=== PATIENT | male | born 1990 | race Caucasian/White ===

== ENCOUNTER 2025-01-08 05:39 | Observation (INO) | payer OTHER, SELFPAY ==
[2025-01-08] VITALS (13 sets, daily range): BP systolic 118–144; BP diastolic 70–93; PULSE 71–103; RESP 12–28; TEMP 36–37; O2SAT 90–96; BMI 35.9; BMI 43.6
--- NOTE | ~2025-01-08 | XR_ITS ---
EXAMINATION: XR KNEE 4 OR MORE VIEWS RIGHT HISTORY: swelling pain COMPARISON: There are no prior studies available for comparison. FINDINGS: Four views of the right knee are submitted. Osseous mineralization is normal. There is no fracture or dislocation. The joint spaces are preserved. There is a large suprapatellar joint effusion. There is a tiny rounded osseous density in the lateral compartment which may present a loose body.. XR/XR knee RT 4V IMPRESSION: Large joint effusion. Possible tiny loose body in the lateral compartment. Otherwise unremarkable examination of the right knee. Electronically signed by: Andrew Smith MD 01/08/2025 07:52 AM EDT
--- NOTE | ~2025-01-08 | XR_ITS ---
EXAMINATION: XR CHEST 2 VIEWS HISTORY: cough asthma sob COMPARISON: There are no prior studies available for comparison. FINDINGS: PA and lateral views of the chest are submitted. The lungs are expanded and clear. There is no pleural effusion, pneumothorax, or pulmonary vascular congestion. The heart is normal in size. The bones are intact. XR/XR chest 2V IMPRESSION: Clear lungs. Electronically signed by: Andrew Smith MD 01/08/2025 07:53 AM EDT
--- NOTE | ~2025-01-08 | XR_ITS ---
EXAMINATION: XR CHEST 1 VIEW HISTORY: sob COMPARISON: Comparison is made with the prior examination dated 01/08/2025. FINDINGS: A single AP portable view of the chest performed at 8:10 AM is submitted. There are low lung volumes. There is linear subsegmental atelectasis at the lung bases. There is no pleural effusion, pneumothorax, or pulmonary vascular congestion. The heart is normal in size. The bones are intact. XR/XR chest 1V IMPRESSION: Low lung volumes. Bibasilar subsegmental atelectasis. Electronically signed by: Andrew Smith MD 01/08/2025 08:30 AM EDT
--- OUTSIDE RECORDS SUMMARY | 2025-01-08 07:29 | XMS_ITS | Clinical Summary ---
Author Organization Formerly [facility] Address [address] [place] [address] Care Team Providers Care Vice Chairman Name Role Phone Unavailable Primary Care Provider Unavailabl e Allergies No known active allergies Medications No known medications Active Problems No known active problems Social History Tobacco Use Types Packs/Day Years Used Date Smoking Tobacco: Some Days Cigarettes 0.5 Smokeless Tobacco: Never Tobacco Cessation:Ready to Q uit: No; Counseling Given: Yes Alcohol Use Standard Drinks/Week Comments Yes 8 (1 standard drink = 0.6 oz pur e alcohol) Social Sex and Gender Information Value Date Recorded Sex Assigned at Male 04/29/2020 12:08 AM EDT Gender Identity Male 04/29/2020 12:13 AM EDT Sexual Orientation Not on file Last Filed Vital Signs Vital Sign Reading Time Taken Comments Blood Pressure 133/81 04/29/2020 1:35 AM EDT Pulse 88 04/29/2020 1:35 AM EDT Temperature 36.9 C (98.5 F) 04/29/2020 1:35 AM EDT Respiratory Rate 18 04/29/2020 1:35 AM EDT Oxygen Saturation 98% 04/29/2020 1:35 AM EDT Inhaled Oxygen Concentration - - Weight 180.5 kg (398 lb) 04/29/2020 12:16 AM EDT Height 188 cm (6' 2 ) 04/29/2020 12:16 AM EDT Body Mass Index 51.1 04/29/2020 12:16 AM EDT Plan of Treatment Health Maintenance Due Date Last Done Comments Hepatitis B Vaccines (1 of 3 - 3-dose series) 1990 Hepatitis C Screening 1990 COVID-19 Vaccine (#1) 1990 Pneumococcal Vaccine (1 of 2 - PCV) 1996 Depression Screening 2002 BMI Counseling 2008 Preventative Health Evaluation 2008 DTap / Tdap / Td (1 - Tdap) 2009 Tobacco Cessation Counseling 04/29/2021 04/29/2020 Influenza Vaccine (Season Ended) 2025 RSV Ped < 20 months Aged Out No longe r eligible based on patient's age to complete this topic
--- OUTSIDE RECORDS SUMMARY | 2025-01-08 07:29 | XMS_ITS | Clinical Summary ---
Author Organization [facility] Address [id number] [place] [id number] Care Team Providers Care Mac Developer Name Role Phone Unavailable Primary Care Provider Unavailabl e Medical History Medical History Date Comments Asthma DX:Asthma Social History Tobacco Use Types Packs/Day Years Used Date Smoking Tobacco: Some Days Cigarettes Smokeless Tobacco: Never Alcohol Use Standard Drinks/Week Comments Yes 8 (1 standard drink = 0.6 oz pur e alcohol) Sex and Gender Information Value Date Recorded Sex Assigned at Not on file Legal Sex Male 7:50 PM EST Gender Identity Not on file Sexual Orientation Not on file Obstetrics History Plan of Treatment Health Maintenance Due Date Last Done Comments DTaP,Tdap,and Td Vaccines (1 - Tdap) 2009 Hepatitis B Vaccines (1 of 3 - 19+ 3-dose series) 2009 COVID-19 Vaccine (2023-2 5 season) 2024 Influenza Vaccine (Season Ended) 2025 HIB Vaccines Aged Out No longer eligi ble based on patient's age to complete this topic HPV Vaccines Aged Out No longer eligi ble based on patient's age to complete this topic Hepatitis A Vaccines Aged Out No long er eligible based on patient's age to complete this topic IPV Vaccines Aged Out No longer eligi ble based on patient's age to complete this topic MMR Vaccines Aged Out No longer eligi ble based on patient's age to complete this topic Meningococcal ACWY Vaccine Aged Out N o longer eligible based on patient's age to complete this topic Meningococcal B Vaccine Aged Out No l onger eligible based on patient's age to complete this topic Pneumococcal Vaccine: Pediat rics (0 to 5 Years) and At-Risk Patients (6 to 64 Years) Aged Out No longer eligible b ased on patient's age to complete this topic RSV Immunization Patients Un kimberlee 20 months Aged Out No longer eligible b ased on patient's age to complete this topic Varicella Vaccines Aged Out No longer eligible based on patient's age to complete this topic
[2025-01-08 07:42] LABS: Resp Syncy Virus RNA Qual PCR NEGATIVE (Negative); SARS COV2 PCR INHOUSE NEGATIVE (Negative)
[2025-01-08] MEDS: Albuterol Sulfate 5 MG, Albuterol/Iprat 2.5/0.5MG 3 ML 3 ML INHALE (07:58)
--- NOTE | 2025-01-08 08:14 | ED.GENADULT ---
HPI - General Adult General Chief complaint: General Medical Stated complaint: fluid in knee Time Seen by Provider: 01/08/25 07:10 History of Present Illness HPI narrative: Patient is a 34-year-old male presents today with having coughing congestion upper respiratory symptoms. Generalized malaise. Has a history of having fluid in his right knee. Reports 5 days of swelling. Positive coughing generalized malaise. History of asthma history of diabetes patient coughing productive of some sputum. Still smokes. Hospitalized for asthma 5 months ago. Never been intubated. No history of congestive heart failure Related Data Allergies Allergy/AdvReac Type Severity Reaction Status Date / Time No Known Allergies Allergy Verified 01/08/25 05:47 Review of Systems Review of Systems: Positive cough upper respiratory symptoms Yes all other systems are reviewed and are negative PMFSH Past Medical History Attestation statement: The following information was validated with the patient. Medical History (Updated 01/08/25 @ 13:55 by Robel Church MD) Obesity Diabetes mellitus Surgical History (Updated 01/08/25 @ 13:56 by Robel Church MD) No pertinent past surgical history Social History Social History (Updated 01/08/25 @ 13:56 by Robel Church MD) Alcohol intake: former Patient Tobacco Use Status: Never used Tobacco Smoked in Last 30 Days: No e-Cigarette/Vaping Use: Never Used Use of substances other than those prescribed or required for medical reasons: No Substance Use Type: Marijuana Advance Directives: No Advance Directives Information Provided: Yes Do you have a plan to hurt others: No Plan Physical Exam ED Vital Signs: Vital Signs - 24 hr 01/08/25 05:44 01/08/25 07:49 01/08/25 07:58 Temperature 98.6 F 96.9 F Pulse Rate 90 92 97 Respiratory Rate 20 26 H 28 H Blood Pressure 144/93 H 136/81 Pulse Oximetry 96 91 L Oxygen Delivery Method Room Air Room Air Oxygen Flow Rate 01/08/25 09:24 01/08/25 11:06 01/08/25 11:09 Temperature 97.8 F Pulse Rate 103 H 91 Respiratory Rate 22 H 12 Blood Pressure 132/79 118/74 Pulse Oximetry 93 Oxygen Delivery Method Nasal Cannula Oxygen Flow Rate 2 01/08/25 11:16 01/08/25 11:20 01/08/25 13:06 Temperature 97.9 F Pulse Rate 71 Respiratory Rate 14 17 Blood Pressure 120/70 Pulse Oximetry 90 L 93 96 Oxygen Delivery Method Nasal Cannula Nasal Cannula Room Air Oxygen Flow Rate 2 3 BMI result Body Mass Index 35.9 Appearance: Alert. Oriented X3. No acute distress. Eyes: Pupils equal, round and reactive to light. ENT: Pharynx normal. Neck: Normal inspection. Neck supple. No lymph nodes noted. No crepitus CVS: Normal heart rate and rhythm. Pulses normal. Normal S1 and S2 Respiratory: Diminished breath sounds positive wheezing bilaterally Abdomen: Soft and nontender. No rigidity. No distention. good BS x4 Skin: Skin warm and dry. Normal skin color. Normal skin turgor. Extremities: No lower extremity edema. Neurovascular intact to all extremities. Positive swelling to the right knee pain on flexion. Large amount of joint effusion noted. Distal pulses intact sensation intact Neuro: Oriented X 3. No motor deficit. No sensory deficit. Moving all extermities. No slurred speech Medications Administered Generic Name Dose Route Start Last Admin Trade Name Freq PRN Reason Stop Dose Admin Enoxaparin Sodium 40 mg 01/08/25 13:30 01/08/25 13:48 Enoxaparin Sodium 40 Mg/0.4 Ml Syringe SUBCUT 40 mg Q24H IRISH Administration Methylprednisolone Sodium Succinate 40 mg 01/08/25 13:30 01/08/25 13:48 Methylprednisolone Sod Succ 40 Mg Vial IVPUSH 40 mg Q8H IRISH Administration Discontinued Medications Generic Name Dose Route Start Last Admin Trade Name Freq PRN Reason Stop Dose Admin Albuterol Sulfate 5 mg/ 0 mg 01/08/25 07:55 01/08/25 07:58 Albuterol/Ipratropium 3 ml INHALE 01/08/25 07:56 1 each ONCE ONE Administration Albuterol Sulfate 2.5 mg/ 0 mg 01/08/25 09:21 01/08/25 09:24 Albuterol/Ipratropium 3 ml INHALE 01/08/25 09:22 1 dose ONCE ONE Administration Sodium Chloride 3,810.18 mls @ 3,810.18 mls/hr 01/08/25 08:06 01/08/25 11:06 Ns 30 ml/kg infuse over 1 hr (3810.18 ml) 01/08/25 09:05 Infused IV Infusion .Q1H STA Magnesium Sulfate 2 gm in 50 mls @ 25 mls/hr 01/08/25 08:06 01/08/25 09:05 Magnesium Sulfate/H2o IV 01/08/25 10:05 Infused ONCE ONE Infusion Methylprednisolone Sodium Succinate 125 mg 01/08/25 08:05 01/08/25 08:41 Methylprednisolone Sod Succ 125 Mg Vial IVPUSH 01/08/25 08:06 125 mg ONCE ONE Administration Procedures Joint Aspiration/Injection Joint Asp./Inject. 1: Time Out Performed: Yes Side of body: right Joint Aspirated: knee Ultrasound Guidance: No Skin Prep: Chlorhexidine Local Anesthetic: lidocaine 1% Needle Size Used: 20G Fluid Obtained: clear Total fluid obtained (mL): 140 Patient Tolerated Procedure: well Complications: none Medical Decision Making Medical Decision Making [facility] Narrative: Patient given multiple neb treatments with only moderate relief. My interpretation patient's chest x-ray is grossly negative. My interpretation patient's knee x-ray showed no fracture but large effusion. Patient's troponin was negative BNP is normal no evidence of heart failure no evidence for ACS lactate is 1.2 no evidence for severe sepsis I tapped patient's knee shows large amount of straw-colored synovial fluid. Symptomatically feels improved. Synovial fluid showed no gross signs of infection. Hospitalist team contacted will admit for further evaluation Differential Diagnosis Differential Diagnoses: The differential diagnosis associated with the presentation includes Asthma, fluid in the right knee, pneumonia Admission/Observation Consideration of admission/observation: Escalation of care including admission/observation considered Consult Healthcare Provider Management of the patient was discussed with: Hospitalist Lab Data [facility] Lab Attestation statement: I reviewed the patient's lab results. 01/08/25 08:26 01/08/25 08:26 Labs: Lab Results 01/08/25 01/08/25 01/08/25 Range/Units 06:48 08:26 08:58 WBC 10.1 (4.8-10.8) X10*3/uL RBC 5.31 (4.60-5.80) X10*6/uL Hgb 14.8 (14.0-18.0) g/dl Hct 44.3 (42.0-52.0) % MCV 83.4 (80.0-98.0) fL MCH 27.9 (27.0-33.0) pg MCHC 33.4 (31.0-36.0) g/dl RDW 14.6 (11.0-16.0) % Plt Count 394 (160-400) X10*3/uL MPV 9.5 (9.4-12.4) fL Immature Gran % (Auto) 0.2 (0.0-0.4) % Neut % (Auto) 52.5 (45-73) % Lymph % (Auto) 27.5 (20-40) % [place] % (Auto) 7.7 (2-11) % Eos % (Auto) 10.9 H (0-4) % Baso % (Auto) 1.2 (0-2) % Lymph # (Auto) 2.8 (1.2-4.9) X10*3/uL [place] # (Auto) 0.8 (0.1-1.2) X10*3/uL Eos # (Auto) 1.1 H (0.0-0.4) X10*3/uL Baso # (Auto) 0.1 (0.0-0.2) X10*3/uL Abs Immat Gran (auto) 0.02 (0.00-0.03) X10*3/uL Absolute Neuts (auto) 5.3 (2.0-8.3) x10*3/uL Absolute Nucleated RBC 0.000 (0.0-0.012) X10*3/uL Nucleated RBC % (auto) 0.0 (0.0-0.2) /100WBC Sodium 141 (135-145) mmol/L Potassium 3.8 (3.3-5.1) mmol/L Chloride 107 (96-108) mmol/L Carbon Dioxide 24 (22-29) mmol/L Anion Gap 14 (12-20) BUN 14 (9-16) mg/dL Creatinine 0.93 (0.5-1.4) mg/dL Estim Creat Clear Calc 158.4 Estimated GFR > 60 Random Glucose 99 (60-115) mg/dL Estimat Average Glucose 111 mg/dL Hemoglobin A1c % 5.5 (<6.0) % Lactic Acid 1.2 (0.5-2.0) mmol/L Calcium 9.4 (8.4-10.2) mg/dL Troponin I High Sens 3.1 (<3.5-35.0) ng/L B-Natriuretic Peptide 12 (<100) pg/mL Synovial Source right knee Synovial WBC 1.512 X10*3/uL Synovial RBC < 0.002 X10*6/uL Synovial Neutrophils 51 % Synovial Lymphocytes 26 % Synovial Monocytes 22 % Synovial Other Cells 1 Influenza Type A (PCR) NEGATIVE (Negative) Influenza Type B (PCR) NEGATIVE (Negative) RSV RNA Qual (PCR) NEGATIVE (Negative) SARS-CoV-2 RNA (RT-PCR) NEGATIVE (Negative) Independent Interpretation I performed an independent interpretation of an: Plain X-Ray (Chest x-ray negative. X-ray of the knee showed large effusion.) Radiology Impression Discussion of test interpretation with radiology: I have reviewed the radiologist's reading. Chronic Conditions History of asthma history of effusion to the right knee Social Determinants Patient?s care significantly limited by Social Determinants of Health including: Problems related to primary support group Critical Care Time Critical Care Time Critical Care Time: Yes Total Critical Care Time: 35 Attestation: I have personally provided 35 minutes of critical care time exclusive of time spent on separately billable procedures. ?Time includes review of lab data, radiology results, discussion with consultants, and monitoring for potential decompensation. ?Interventions were performed as documented above Discharge Plan Discharge Clinical Impression: Asthma, Effusion of knee Patient Disposition: Admitted As Inpatient Print Language: Maltese
[2025-01-08 08:33] LABS: MANUAL DIFF FLAG NO
[2025-01-08 08:34] LABS: Hematocrit 44.3 % (42.0-52.0); Hemoglobin 14.8 g/dl (14.0-18.0); Imm Gran Abs Auto 0.02 X10*3/uL (0.00-0.03); Imm Gran Pct Auto 0.2 % (0.0-0.4); Lymphocytes Absolute Auto 2.8 X10*3/uL (1.2-4.9); Mean Corpuscular HGB Conc 33.4 g/dl (31.0-36.0); Mean Corpuscular Hemoglobin 27.9 pg (27.0-33.0); Mean Corpuscular Volume 83.4 fL (80.0-98.0); NRBC Abs Auto 0.000 X10*3/uL (0.0-0.012); NRBC Pct Auto 0.0 /100WBC (0.0-0.2); Platelet Count 394 X10*3/uL (160-400); Red Blood Count 5.31 X10*6/uL (4.60-5.80); White Blood Count 10.1 X10*3/uL (4.8-10.8)
[2025-01-08] MEDS: Magnesium Sulfate/H2O 2 GM/50 ML PIGGYBACK IV (08:41)
[2025-01-08 08:51] LABS: Anion Gap 14 (12-20); Blood Urea Nitrogen 14 mg/dL (9-16); Calcium 9.4 mg/dL (8.4-10.2); Carbon Dioxide 24 mmol/L (22-29); Chloride 107 mmol/L (96-108); Creatinine Clr Calc Pharmacy 158.4; Estimated Glomerular Filt Rate > 60; Potassium 3.8 mmol/L (3.3-5.1); Sodium 141 mmol/L (135-145)
[2025-01-08 08:55] LABS: B Type Natriuretic Peptide 12 pg/mL (<100)
[2025-01-08 08:57] LABS: Troponin-I High Sensitivity 3.1 ng/L (<3.5-35.0)
[2025-01-08] MEDS: 0.9 % Sodium Chloride 3,810.18 ML 3810.18 ML IV (08:59)
[2025-01-08 09:05] LABS: Source Synovial Fluid right knee
[2025-01-08 09:17] LABS: MN% 57.4 %; PMN% 42.6 %
[2025-01-08 09:18] LABS: RBC Synovial Fluid < 0.002 X10*6/uL
[2025-01-08] MEDS: Albuterol Sulfate 2.5 MG, Albuterol/Iprat 2.5/0.5MG 3 ML 3 ML INHALE (09:24)
[2025-01-08 10:00] LABS: BF Shift QC OK YES
[2025-01-08 10:01] LABS: Lymphocytes Synovial Fluid 26 %; Monocytes Synovial Fluid 22 %; Neutrophils Synovial Fluid 51 %; Other Cells Synovial Fluid 1
--- NOTE | 2025-01-08 11:05 | PC.NURSE ---
This Nurse assumed care over pt, PT fluids done, First bp of 132/79 taken after fluid completion. O2 Sats at 88 % RA pt placed on 2L NC.
--- NOTE | 2025-01-08 13:40 | PM.IMHP ---
History of Present Illness Date of Service: 01/08/25 Chief Complaint: knee pain 34 yo M with asthma and DM (not on meds for many months due to insurance issue) who presents with a several day history of progressive sob + productive cough (white/clear sputum) + fatigue. He denies any fevers or chills. Slim any sick contacts. Reports progression on symptoms and hence presented to ED. Also has secondary complaint of R knee pain with swelling. States unsure of how long this has been going on, but denies trauma. Reports swelling and decreased ROM due to this. In the ED, pt with borderline low SpO2, mary 90%; CXR without acute findings -- treated with nebs and steroids; placed on 2L supplemental O2 Arthrocentesis of R knee done -- consistent with inflammatory process (+urate cystals); Knee XR with effsuion + ? loose body Review of Systems Review of Systems: Negative except HPI/interval history. [facility] Medical History (Updated 01/08/25 @ 13:55 by Robel Church MD) Obesity Diabetes mellitus Pertinent family history: Denies health problems in the family Surgical History (Updated 01/08/25 @ 13:56 by Robel Church MD) No pertinent past surgical history Social History (Updated 01/08/25 @ 13:56 by Robel Church MD) Alcohol intake: former Patient Tobacco Use Status: Never used Tobacco e-Cigarette/Vaping Use: Never Used Substance Use Type: Marijuana Meds Allergies Allergy/AdvReac Type Severity Reaction Status Date / Time No Known Allergies Allergy Verified 01/08/25 05:47 Active Medications: Current Medications Acetaminophen (Acetaminophen 325 Mg Tablet) 650 mg PO Q6H PRN PRN Reason: Pain, Mild 1-3,fever,headache Albuterol/Ipratropium (Albuterol/Iprat 2.5/0.5mg 3 Ml Ampul.Neb) 3 ml INHALE RQ4H WHILE AWAKE IRISH Calcium Carbonate (Calcium Carbonate 750 Mg Tab.Chew) 750 mg PO Q4H PRN PRN Reason: Heartburn Enoxaparin Sodium (Enoxaparin Sodium 40 Mg/0.4 Ml Syringe) 40 mg SUBCUT Q24H IRISH Magnesium Hydroxide (Milk Of Magnesia 30 Ml Oral.Susp) 30 ml PO DAILY PRN PRN Reason: Constipation Melatonin (Melatonin 3 Mg Tablet) 6 mg PO BEDTIME PRN PRN Reason: Insomnia Methylprednisolone Sodium Succinate (Methylprednisolone Sod Succ 40 Mg Vial) 40 mg IVPUSH Q8H IRISH Morphine Sulfate (Morphine Sulfate 4 Mg/Ml Cartridge) 2 mg IVPUSH Q4H PRN; Protocol PRN Reason: Pain, Severe (Pain Scale 7-10) Sodium Chloride (0.9 % Sodium Chloride Flush 3 Ml Syringe) 3 ml IVFLUSH QSHIFT IRISH Physical Exam Vital Signs and Narrative: Vital Signs: Last Vital Signs Temp 97.9 F 01/08/25 13:06 Pulse 71 01/08/25 13:06 Resp 17 01/08/25 13:06 BP 120/70 01/08/25 13:06 Pulse Ox 96 01/08/25 13:06 O2 Del Method Room Air 01/08/25 13:06 O2 Flow Rate 3 01/08/25 11:20 BMI result Body Mass Index 35.9 Const: Other: Constitutional - Awake and Alert, No apparent distress Eyes - PERRLA, EOMI Cardiovascular - S1S2, RRR, No edema Respiratory - dim sounds globally; stats 93 on 2L Gastrointestinal - NT / ND; +BS; No rebound or guarding - No CVA tenderness Extremities - no calf tenderness bilaterally, no swelling Musculoskeletal - RLE in shady bandage around knee Skin - Warm/Dry Neurological - Alert & oriented x3, No focal deficit Psychological - Appropriate affect Results Labs 01/08/25 08:26 01/08/25 08:26 Labs: Laboratory Results - last 24 hr 01/08/25 01/08/25 01/08/25 06:48 08:26 08:58 MCV 83.4 MCH 27.9 MCHC 33.4 RDW 14.6 Plt Count 394 MPV 9.5 Immature Gran % (Auto) 0.2 Neut % (Auto) 52.5 Lymph % (Auto) 27.5 [place] % (Auto) 7.7 Eos % (Auto) 10.9 H Baso % (Auto) 1.2 Lymph # (Auto) 2.8 [place] # (Auto) 0.8 Eos # (Auto) 1.1 H Baso # (Auto) 0.1 Abs Immat Gran (auto) 0.02 Absolute Neuts (auto) 5.3 Absolute Nucleated RBC 0.000 Nucleated RBC % (auto) 0.0 Anion Gap 14 Estim Creat Clear Calc 158.4 Estimated GFR > 60 Random Glucose 99 Lactic Acid 1.2 Calcium 9.4 Troponin I High Sens 3.1 B-Natriuretic Peptide 12 Synovial Source right knee Synovial WBC 1.512 Synovial RBC < 0.002 Synovial Neutrophils 51 Synovial Lymphocytes 26 Synovial Monocytes 22 Synovial Other Cells 1 Influenza Type A (PCR) NEGATIVE Influenza Type B (PCR) NEGATIVE RSV RNA Qual (PCR) NEGATIVE SARS-CoV-2 RNA (RT-PCR) NEGATIVE Imaging Radiologist's Impressions: Impressions Knee X-Ray 01/08/25 05:41 IMPRESSION: Large joint effusion. Possible tiny loose body in the lateral compartment. Otherwise unremarkable examination of the right knee. Electronically signed by: Andrew Smith MD 01/08/2025 07:52 AM EDT RP Chest X-Ray 01/08/25 06:35 IMPRESSION: Clear lungs. Electronically signed by: Andrew Smith MD 01/08/2025 07:53 AM EDT RP Chest X-Ray 01/08/25 07:10 IMPRESSION: Low lung volumes. Bibasilar subsegmental atelectasis. Electronically signed by: Andrew Smith MD 01/08/2025 08:30 AM EDT RP Assessment and Plan (1) Effusion of knee: Status: Acute (2) Asthma: Status: Acute Plan 34 yo M with DM/asthma, not on meds for either for months who presents with several days of cough and progressive SOB. Found to be have asthma exacerbation + R knee effusion secondary to gout. 1. Acute asthma exacerbation SpO2 90% at lowest, currently 93 on 2L IV steroids + scheduled/prn bronchodilators wean o2 as tolerated cxr negative for infiltrate; flu/rsv/covid - negative 2. R inflammatory (gout) knee effusion s/p arthrocentesis -- + urate cystals; neg gram stain; less than 2k wbc knee XR mention of foreign body -- d/w ortho with no specific intervention needed; can f/u in their clinic 3. DM previously on trulicity -- stopped months ago (per pt due to insurance issues); currently not on any meds POC + sliding scale check HBA1C 4. Obesity impacting his resp status/DM weight loss encouraged Full Code DVT pptx, Lovenox Quality Stroke Does the patient have a stroke diagnosis?: No VTE Prior VTE?: No VTE Risk Level:: Medical - moderate - high VTE Device Contraindication: N/A - Device Ordered VTE Drug Contraindication: N/A - Med Ordered
[2025-01-08 14:12] LABS: Hemoglobin A1C 142.7129 umol/L; Total Hemoglobin (HGBA1C) 3859.7757 umol/L
--- NOTE | 2025-01-08 16:07 | PHA.MEDREC ---
Addendum entered by Brent Garcia [facility] ED 01/08/25 16:27: Med rec reviewed Original Note: Pharmacy Consult ? Medication Reconciliation Pharmacy has completed the medication reconciliation. Spoke with pt and he stated he is taking an Albuterol Inhaler he got from a friend as needed that he took this morning and nothing prescribed to him at this time or OTC.
[2025-01-08 17:27] LABS: Glucose, Whole Blood 145 mg/dL (60-115)
[2025-01-08] MEDS: Albuterol/Iprat 2.5/0.5MG 3 ML AMPUL.NEB INHALE (19:47)
[2025-01-08 20:44] LABS: Glucose, Whole Blood 194 mg/dL (60-115)
[2025-01-08] MEDS: 0.9 % Sodium Chloride Flush 3 ML SYRINGE IVFLUSH (21:28)
[2025-01-09 03:26] VITALS: BP 131/76; PULSE 82; RESP 18; TEMP 36.4; O2SAT 93
--- NOTE | 2025-01-09 04:19 | PC.NURSE ---
Pt woke up around 3am, having bouts and persistent coughing leading to SOB and wheezing, pt requested for neb and cough med vitals WNL, O2 sats at 93% at 3L/min via NC ,message sen to Dr. Knowles, awaiting for reply, reassured pt.
[2025-01-09] MEDS: Albuterol/Iprat 2.5/0.5MG 3 ML AMPUL.NEB INHALE ×3 (04:32→11:34)
[2025-01-09 04:33] VITALS: PULSE 82; RESP 18; O2SAT 93
[2025-01-09 07:19] LABS: Glucose, Whole Blood 105 mg/dL (60-115)
[2025-01-09 07:42] VITALS: BP 140/72; PULSE 80; RESP 18; TEMP 36.8; O2SAT 95
[2025-01-09 08:37] VITALS: PULSE 64; RESP 16; O2SAT 98
--- NOTE | 2025-01-09 09:44 | PM.DS ---
DS: Providers Provider Date of Service: 01/09/25 Date of admission: 01/08/25 13:25 Date of discharge: 01/09/25 Primary care physician: Unknown Physician Consults: 01/09/25 09:39 Consult to Orthopedics Routine Consulting Provider: [facility] – [place] [facility] Reason for consultation: knee effusion DS: Diagnosis Discharge Diagnosis (1) Effusion of knee: Status: Acute (2) Asthma: Status: Acute DS: Summary Hospital Course Hospital Course: History and physical as per admitting provider. 34 yo M with asthma and DM (not on meds for many months due to insurance issue) who presents with a several day history of progressive sob + productive cough (white/clear sputum) + fatigue. He denies any fevers or chills. Slim any sick contacts. Reports progression on symptoms and hence presented to ED. Also has secondary complaint of R knee pain with swelling. States unsure of how long this has been going on, but denies trauma. Reports swelling and decreased ROM due to this. In the ED, pt with borderline low SpO2, mary 90%; CXR without acute findings -- treated with nebs and steroids; placed on 2L supplemental O2 Arthrocentesis of R knee done -- consistent with inflammatory process (+urate cystals); Knee XR with effsuion + ? loose body 34-year-old man treated for acute asthma exacerbation, initially oxygen saturation 90%, placed on 2 L but at this time patient is now on room air. He was treated with the IV steroids and scheduled bronchodilators. Chest x-ray was negative for infiltrate, flu, RSV and COVID negative. Plan will be to discharge patient with short prednisone taper and albuterol inhaler Right inflammatory infusion to knee with gout. Status post arthrocentesis with positive urate crystals, negative Gram stain, less than 2000 WBCs. Knee x-ray mentions of foreign body. Seen and evaluated by Orthopedic surgery>nothing to do, may follow up with rheum o/p as needed. Home with 7 days of IBU and prilosec Diabetes mellitus type 2. Not on any medications currently. A1c 5.2. Morbid obesity. BMI 43.6. Discussed importance of weight management as this may be contributing to worsening of other comorbidities Time Attestation Discharge Coordination Time (in mins): 46 Quality: Safe Use of Opioids Does Pt have an Active Cancer Diagnosis on the Problem List?: No Quality: Stroke Does the patient have a stroke diagnosis?: No Physical Exam Vital Signs: Vital Signs: Last Vital Signs Temp 98.2 F 01/09/25 07:42 Pulse 64 01/09/25 08:37 Resp 16 01/09/25 08:37 BP 140/72 H 01/09/25 07:42 Pulse Ox 95 01/09/25 07:42 O2 Del Method Nasal Cannula 01/09/25 07:42 O2 Flow Rate 2.0 01/09/25 07:42 BMI result Body Mass Index 43.6 Appearing in no acute distress head is normocephalic atraumatic eyes pupils are PERRLA sclera is anicteric mouth throat mucous membranes are intact and moist neck is supple no lymphadenopathy, no JVD noted lung sounds are clear to auscultation heart regular rate rhythm, clear S1, S2 positive bowel sounds, abdomen is soft, nontender neuro patient is alert x3, no focal deficits DS: Data Data Completed and Pending Labs on day of discharge: Laboratory Results - last 24 hr 01/08/25 01/08/25 01/08/25 08:26 08:58 17:24 POC Glucose 145 H Estimat Average Glucose 111 Hemoglobin A1c % 5.5 Synovial Neutrophils 51 Synovial Lymphocytes 26 Synovial Monocytes 22 Synovial Other Cells 1 01/08/25 01/09/25 20:38 07:13 POC Glucose 194 H 105 Estimat Average Glucose Hemoglobin A1c % Synovial Neutrophils Synovial Lymphocytes Synovial Monocytes Synovial Other Cells Preliminary micro results at discharge 01/08/25 08:58 Anaerobic Culture - Preliminary Knee aspirate No growth to date. Joint Fluid Culture - Preliminary No growth to date. Discharge Plan Discharge Anticipated Discharge Date/Time: 01/09/25 09:40 Patient Disposition: Home, Self-Care Discharge Diagnosis: Asthma exacerbation Knee effusion Gout Referrals: Pedro Luis Martinez MD [Physician, Orthopedics] Referral Note: Follow up as needed for return of joint effusion Discharge Medications: New benzonatate 100 mg Capsule 100 mg PO TID PRN (Reason: Cough) Qty: 12 0RF prednisone 10 mg tablet 40 mg PO DIRECTED Qty: 16 0RF Rx Instructions: Take 40 mg for 4 days albuterol sulfate [Ventolin HFA] 90 mcg/actuation HFA aerosol inhaler 2 puff inhalation Q6H PRN (Reason: shortness of breath or wheezing) Qty: 8.5 0RF ibuprofen 800 mg tablet 800 mg PO TID Qty: 21 0RF omeprazole magnesium [Prilosec OTC] 20 mg tablet,delayed release (DR/EC) 20 mg PO BID Qty: 14 0RF Rx Instructions: Take while taking Ibuprofen Discharge Orders: Discharge Order (Routine); Ordered 01/09/25 Ordered By: Batsheva Henderson Diet: Advance to usual diet Activity on Discharge: As tolerated Stand Alone Forms: Patient Portal Discharge page Print Language: Yi Care Plan Goals: Continue short prednisone taper for asthma exacerbation You have been prescribed albuterol inhaler to use as needed for wheezing Take Ibuprofen for gout, may reduce dose if significant improvement is seen take prilosec while taking Ibuprofen to avoid gastritis Health Concerns: Asthma exacerbation Knee effusion Gout Plan of Treatment: Follow up with primary care provider as needed Take all medications as prescribed Assessment: See discharge summary
[2025-01-09 11:34] VITALS: PULSE 72; RESP 16; O2SAT 94
[2025-01-09 11:48] LABS: Glucose, Whole Blood 135 mg/dL (60-115)
--- NOTE | 2025-01-09 13:55 | MHC.CM.PN ---
EBONI 01/09/25 DX ASTHMA EXACERBATION Patient lives with others. No health insurance, or PCP. Independent with all functional mobility. Patient is discharge today to home self care. He will self transport home. His car is in [employer] lot.
--- NOTE | 2025-01-09 15:40 | P.CONOP_ITS ---
History of Present Illness HPI Consult date: 01/09/25 Chief complaint: shortness of breath Narrative: 34-year-old gentleman admitted to the medical service for shortness of breath who also had complaints of right knee pain and swelling. He denies any acute process to the right knee pain. No previous history of gout or inflammatory disease. Review of Systems 2 Review of Systems: Yes all other systems are reviewed and are negative PMFSH Past Medical History Medical History Obesity Diabetes mellitus Surgical History Surgical History No pertinent past surgical history Social History Social History (Updated 01/08/25 @ 13:56 by Robel Church MD) Household Members: Other Housing: House Do you presently have visiting nurse or other home services: No Alcohol intake: former Patient Tobacco Use Status: Former Tobacco user Tobacco use type: Cigarette Smoked in Last 30 Days: No e-Cigarette/Vaping Use: Never Used Patient Interested in Nicotine Replacement: No Patient Given Instructions on How to Stop Smoking: No Second Hand Smoke Exposure: No Use of substances other than those prescribed or required for medical reasons: No Substance Use Type: Marijuana Currently Displaying Signs/Symptoms of Drug Intoxication Withdrawal: No Have you been hit, kicked, punched, or otherwise hurt by someone within the past year? If so, by whom?: No Do you feel safe in your current relationship?: No Current Relationship Is there a partner from a previous relationship who is making you feel unsafe now?: No Are you made to feel afraid or neglected: No Advance Directives: No Advance Directives Information Provided: Yes Advance Directives on File: No Do you have a plan to hurt others: No Plan Recently lost weight without trying: No Eating poorly because of decreased appetite: No Poor oral hygiene: No Meds Allergies Allergy/AdvReac Type Severity Reaction Status Date / Time No Known Allergies Allergy Verified 01/08/25 05:47 Physical Exam 2 Vital Signs: Vital Signs: Last Vital Signs Temp 98.2 F 01/09/25 07:42 Pulse 72 01/09/25 11:34 Resp 16 01/09/25 11:34 BP 140/72 H 01/09/25 07:42 Pulse Ox 95 01/09/25 07:42 O2 Del Method Nasal Cannula 01/09/25 07:42 O2 Flow Rate 2.0 01/09/25 07:42 BMI result Body Mass Index 43.6 Const: General: cooperative and no acute distress O rientation/consciousness: patient oriented x3 Resp: Effort & Inspection: normal respiratory effort and able to speak in complete sentences Cardio: Peripheral pulses: Peripheral pulses 2+ throughout Neuro: General: patient oriented x3 Extrem: Other: Right knee is normal to inspection no significant redness or tenderness to palpation. Calf supple nontender neurovascularly intact. Results Labs 01/08/25 08:26 01/08/25 08:26 Labs: Abnormal lab results 01/08/25 01/08/25 01/09/25 Range/Units 17:24 20:38 11:39 POC Glucose 145 H 194 H 135 H (60-115) mg/dL H & H 01/08/25 Range/Units 08:26 Hgb 14.8 (14.0-18.0) g/dl Hct 44.3 (42.0-52.0) % All other labs normal. Assessment and Plan (1) Effusion of knee: Status: Acute Plan RUN: 01/09/25 1541 PAGE 1 [facility] [address] [place] [id number] Outpatient Phlebotomist: Prabhakar Simmons M.D. Specimen Inquiry L Name: Jose Serna III Age/Sex: 34/M : 1990 Unit#: [id number] Attend Dr: Batsheva Henderson TILE [employer]TER [employer]PERVISOR Re01/08/25 Status: DIS MELITON Location: [place] [id number]- D isch: 01/09/25 Specimen: [id number] Collected: 01/08/25 Status: RES Req#: [id number] Received: 01/08/25 Source: Knee aspir Sp Desc: Subm Dr: Mrieya Hamlin MD Ordered: SynFld Cult/Cry, Syn Fld Cult Procedure Result Verified Gram stain Final 01/08/25 Gram stain results: 2+ polys No organisms seen Anaerobic Culture Preliminary 01/09/25 No growth to date. Appearance Final 01/08/25 Appearance Cloudy Yellow Crystals Final 07/01/25-1022 Crystals intracellular monosodium urate crystals extracellular monosodium urate crystals Microbiology results consistent with gout No orthopedic intervention warranted at this time Outpatient Rheumatology appointment if symptoms persist Procedures Date of Service Date of Service: 01/09/25
== END 2025-01-09 14:12 | disposition home or self-care (01) ==
LOC: HO.ED 14:14 → HO.EDOVER 15:06 → HO.S3 15:58
PROVIDERS: Internal Medicine; Admitting Provider Family Medicine; Emergency Provider Emergency Medicine Emergency Medical Services; Visit Provider Nurse Practitioner Acute Care
DX: J45.901 Unspecified asthma with (acute) exacerbation (principal); M25.469 Effusion, unspecified knee; M10.9 Gout, unspecified; R05.9 Cough, unspecified; R53.81 Other malaise; E11.9 Type 2 diabetes mellitus without complications; E66.01 Morbid (severe) obesity due to excess calories; Z68.41 Body mass index [BMI] 40.0-44.9, adult
CPT/HCPCS: 20610; 36415; 71045; 71046; 73564; 80048; 82947; 83036; 83605; 83880; 84484; 85025; 87040; 87070; 87073; 87205; 87637; 89051; 89060; 94640; 96361; 96365; 96372; 96375; 96376; 97161; 99221; 99285; J1650; J2919; J3475

== ENCOUNTER → 2025-01-08 06:35 | Outpatient (BNV) | payer OTHER, SELFPAY | PROVIDERS: Emergency Provider Emergency Medicine Emergency Medical Services; Visit Provider Radiology Diagnostic Radiology | DX: M25.461 Effusion, right knee (principal); R05.9 Cough, unspecified; J45.909 Unspecified asthma, uncomplicated; J98.4 Other disorders of lung; J98.11 Atelectasis | CPT/HCPCS: 71045; 71046; 73564 ==

== ENCOUNTER → 2025-01-08 07:11 | Outpatient (BNV) | payer OTHER, SELFPAY | PROVIDERS: Emergency Provider Emergency Medicine Emergency Medical Services; Visit Provider Family Medicine | DX: M25.461 Effusion, right knee (principal); J45.901 Unspecified asthma with (acute) exacerbation; Z91.141 Patient's other noncompliance with medication regimen due to financial hardship | CPT/HCPCS: 99222; 99239 ==

== ENCOUNTER → 2025-01-08 13:25 | Outpatient (BNV) | payer OTHER, SELFPAY | PROVIDERS: Admitting Provider Family Medicine; Emergency Provider Emergency Medicine Emergency Medical Services; Visit Provider Physician Assistant | DX: M25.461 Effusion, right knee (principal) | CPT/HCPCS: 99221 ==

== ENCOUNTER 2025-06-17 14:27 | Outpatient (AMB) | payer OTHER, SELFPAY ==
--- NOTE | 2025-06-17 14:55 | A.OFFPC_ITS ---
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 Also wants to discuss recent Asthma concerns Accompanied by: Self / Same As Patient Allergies No Known Allergies Allergy (Verified 06/17/25 14:55) Medication List - Last Reconciled 06/17/25 by Orion Luo MD albuterol sulfate 90 mcg/actuation (Ventolin HFA) 2 puffs inhalation Q6H PRN budesonide-formoterol 160-4.5 mcg/actuation (Symbicort) 2 puffs inhalation BID naproxen 500 mg PO BID Tobacco use date assessed: 06/17/25 Dental Screening Dental Screen Date: 06/17/25 HPI HPI Comments History of Present Illness Details History of Present Illness The patient is a 35 year old male presenting to [facility] and for a follow- up visit after a recent emergency room visit for breathing issues and a gout flare-up. Asthma: The patient has a history of moderate persistent asthma and was recently seen in the emergency room for breathing issues. He is currently taking Symbicort 160/4.5 mcg two puffs in the morning and evening as a maintenance inhaler, and albuterol as a rescue inhaler. His Asthma Control Test score was 19, indicating his asthma is not well-controlled. He has never been on montelukast before. Gout: The patient reports experiencing gout flare-ups every once in a while, with the last one occurring three to four years ago prior to the recent one. He had a recent flare-up that was a reason for his emergency room visit. He has never been on medication to prevent flare-ups. He takes naproxen for active flare-ups. Type 2 Diabetes Mellitus: The patient has a history of type 2 diabetes mellitus and is currently taking Trulicity 0.75 mg weekly. He has previously been on insulin and metformin. He does not recall when his last formal hemoglobin A1c blood draw was but believes it has been more than 3 months. Major Depressive Disorder: The patient has a history of severe depression for a few years and is currently seeing a therapist, Dr. Bryant, a psychologist. He previously took bupropion but is not currently on any medication for depression. Other Chronic Conditions: The patient has a past medical history of hyperlipidemia, hypertension, morbid obesity, obstructive sleep apnea, ADHD, and osteoarthritis. He also has a hist ory of possible PTSD. A CT scan on 09/27/2021 showed a 4 mm lung nodule in the right upper lobe. information abstracted from medical records on file Surgical History: - No surgical history reported. Medications: - Symbicort (budesonide/formoterol) 160/ 4.5 mcg, two puffs twice daily for asthma. - Albuterol inhaler, as needed for asthm a. - Trulicity (dulaglutide) 0.75 mg pen, o nce weekly for type 2 diabetes. no taking - Bupropion 150 mg XL. not taking - Naproxen, as needed for gout flare-ups . 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 - Substance Use: He reports no current i llicit drug use and quit smoking marijuana months ago. Family History: - Mother has von Hippel-Lindau disease. - The patient is negative for von Hippel -Lindau disease. Diagnostic Results: - Imaging: CT on 09/27/21 revealed a 4 m m lung nodule in the right upper lobe. - Tests: Asthma Control Test score was 1 9. Past Medical History - Asthma, moderate persistent - Major depressive disorder, severe, for several years. - Hyperlipidemia - Hypertension, not on medication. - Morbid obesity - Type 2 diabetes mellitus, previously o n insulin and metformin. - Obstructive sleep apnea - Attention-deficit/hyperactivity disord er - Osteoarthritis - Possible posttraumatic stress disorder - Gout with infrequent flare-ups. - Lung nodule, 4 mm in right upper lobe, found on CT on 09/27/21. - He is currently receiving psychotherap y. Health Maintenance - Blood work will be ordered to [facility] baseline health status, including a complete blood count, comprehensive metabolic panel, lipid profile, hemoglobin A1c, hepatitis B and C, HIV, magnesium, thyroid panel, urinalysis, vitamin B12, and vitamin D. - A follow-up visit is scheduled in two weeks to discuss lab results and further care plans. [facility] Medical History (Updated 06/17/25 @ 18:33 by Orion Luo MD) Hypertension ADHD PTSD (post-traumatic stress disorder) Lung nodule Obstructive sleep apnea Hyperlipidemia Moderate persistent asthma MDD (major depressive disorder) Morbidly obese Moderate asthma Screening for diabetic retinopathy Diabetes type 2 Obesity Diabetes mellitus Surgical History No pertinent past surgical history Family History Mother No problems noted. Father No problems noted. Social History Household Members: Other Housing: House Do you presently have visiting nurse or other home services: No Alcohol intake: former Patient Tobacco Use Status: Former Tobacco user Tobacco use type: Cigarette e-Cigarette/Vaping Use: Never Used Second Hand Smoke Exposure: No Substance Use Type: Marijuana service: No Current occupational status: employed Cognitive needs: No Hearing needs: No Vision needs: No Questionnaire PHQ-9 Over the last 2 weeks, how often have you been bothered by any of the following problems? 1. Little interest or pleasure in doing things: several days 2. Feeling down, depressed, or hopeless: several days 3. Trouble falling or staying asleep, or sleeping too much: several days 4. Feeling tired or having little energy: more than half the days 5. Poor appetite or overeating: several days 6. Feeling bad about yourself - or that you are a failure or have let yourself or your family down: more than half the days 7. Trouble concentrating on things, such as reading the newspaper or watching television: more than half the days 8. Moving or speaking so slowly that other people could have noticed. Or the opposite - being so fidgety or restless that you have been moving around a lot more than usual: not at all 9. Thoughts that you would be better off or of hurting yourself in some way: several days Total score: 11 Depression Screening Interpretation: Positive Depression Screening Done: Yes Source: Developed by Drs. Andrew Gage, Lupe Pérez, Parminder Schrader and colleagues, with an educational estevan from [employer]. Thrive Questionnaire Date Thrive assessed: 06/17/25 I am a: Patient What is your living situation today?: I have a place to live, but I am worried about losing it in the future Within the past 12 months, did the food you bought not last and you didn't have the money to get more?: Sometimes True Within the past 12 months, did you worry whether your food would run out before you got money to buy more?: Sometimes True Do you have trouble paying for medicines?: No Do you have trouble getting transportation to medical appointments?: Yes Do you have trouble paying your heating and electricity bill?: Yes Do you have trouble taking care of your child, family member or friend?: No Do you have trouble with day-to-day activities such as bathing, preparing meals, shopping, managing finances, etc.?: No Are you currently unemployed and looking for a job?: No Are you interested in more education?: No Please select the resources that you would like help with: Food and Transportation Currently or been in a relationship where the following occur: Controlled Emotionally THRIVE Score: 6 AUDIT C Alcohol Use Questionnaire (AUDIT-C) 1. How often do you have a drink containing alcohol?: Monthly or less 2. How many drinks containing alcohol do you have on a typical day when you are drinking?: 1 or 2 3. How often do you have six or more drinks on one occasion?: Never Total Score: 1 JUAREZ-7 AMB Questionnaire JUAREZ-7 Date JUAREZ - 7 assessed: 06/17/25 Feeling nervous, anxious, or on edge: 2 = More than half the days Not being able to stop or control worryin = More than half the days Worrying too much about different things: 2 = More than half the days Trouble relaxin = More than half the days Being so restless that it is hard to sit still: 1 = Several days Becoming easily annoyed or irritable: 1 = Several days Feeling afraid as if something awful might happen: 1 = Several days Total JUAREZ-7 score (0-4 normal; 5-9 mild; 10-14 moderate; 15-21 severe): 11 Source: Developed by Drs. Andrew Gage, Lupe Pérez, Parminder Schrader and colleagues, with an educational estevan from [employer]. ACT Questionnaire In the past 4 weeks, how much of the time did your asthma keep you from getting as much done at work, school or at home?: A little of the time During the past 4 weeks, how often have you had shortness of breath?: 1-2 times a week During the past 4 weeks, how often did your asthma symptoms wake you up at night or earlier than usual in the morning?: Once or twice per week During the past 4 weeks, how often have you had to use your rescue inhaler or nebulizer medication?: Once a week or less How would you rate your asthma control during the past 4 weeks?: Somewhat controlled Score: 19 Review of Systems Narrative Review of Systems - Respiratory: Reports recent breathing issues. - Musculoskeletal: Reports recent gout flare-up. - Neurological: Reports waking up at odd times during the night and being unable to return to sleep. - Genitourinary/Gastrointestinal: Reports regular bowel and bladder function. - Abdominal: Denies abdominal pain on palpation. 10-point ROS reviewed and negative except as noted in HPI Physical exam (Primary Care) Vital Signs: Last Vital Signs Temp 97.4 F 06/17/25 14:59 Pulse 67 06/17/25 14:59 BP 143/68 H 06/17/25 14:59 Pulse Ox 95 06/17/25 14:59 Oxygen Delivery Method Room Air 06/17/25 14:59 BMI result Body Mass Index 42.2 Tobacco/Smoking Status: Tobacco use Status Tobacco use date assessed 06/17/25 06/17/25 14:57 Patient Tobacco Use Status Former Tobacco user 06/17/25 14:57 Tobacco use type Cigarette 06/17/25 14:57 e-Cigarette/Vaping Use Never Used 06/17/25 14:57 PHQ-9: PHQ-9 Score PHQ-9: Total score 11 06/17/25 15:12 Depression Screening Interpretation: Positive Thrive Assessment: Date of Thrive Assessment Date Thrive assessed 06/17/25 06/17/25 14:57 Currently or been in a relationship where the following occur: Controlled Emotionally Narrative Physical Exam General: Well-appearing, in no acute distress. Vital signs: Within normal limits. HEENT: Normocephalic, atraumatic. PERRLA, EOMI. Conjunctiva clear, sclera anicteric. Oropharynx clear, mucous membranes moist. TMs intact bilaterally. Neck: Supple, no lymphadenopathy, no thyromegaly, no JVD or carotid bruits. Cardiovascular: RRR, normal S1/S2, no murmurs, rubs, or gallops. Peripheral pulses 2+ and symmetric. No edema. Respiratory: Lungs clear to auscultation bilaterally, no wheezes, rales, or rhonchi. Normal effort. Noted a 4 mm lung nodule in the right upper lung on CT from 09/27/21. Abdomen: Soft, non-tender, non-distended. Normoactive bowel sounds. No hepatosplenomegaly, no masses. MSK: Full range of motion, no joint swelling or deformity. Normal gait. Skin: Warm, dry, intact. No rashes, lesions, or pallor. Neuro: Alert and oriented x3. Cranial nerves II-XII intact. Strength 5/5 throughout. Sensation intact. Reflexes 2+ symmetric. Normal coordination and gait. Psych: Appropriate mood and affect. Normal judgment and insight. History of severe depression and possible PTSD. Currently seeing a psychotherapist. Coding Level of Care Code New Pt Level 4 (30983) Diagnoses Moderate asthma J45.909 Diabetes type 2 E11.9 Morbidly obese E66.01 Gout M10.9 MDD (major depressive disorder) F32.9 Hyperlipidemia E78.5 Obstructive sleep apnea G47.33 Lung nodule R91.1 PTSD (post-traumatic stress disorder) F43.10 ADHD F90.9 Hypertension I10 Assessment & Plan Assessment & Plan (1) Moderate asthma: Code(s): J45.909 - Unspecified asthma, uncomplicated Category: Medical (2) Diabetes type 2: Code(s): E11.9 - Type 2 diabetes mellitus without complications Category: Medical (3) Morbidly obese: Code(s): E66.01 - Morbid (severe) obesity due to excess calories Category: Medical (4) Gout: Code(s): M10.9 - Gout, unspecified (5) MDD (major depressive disorder): Code(s): F32.9 - Major depressive disorder, single episode, unspecified Category: Medical (6) Hyperlipidemia: Code(s): E78.5 - Hyperlipidemia, unspecified Category: Medical (7) Obstructive sleep apnea: Code(s): G47.33 - Obstructive sleep apnea (adult) (pediatric) Category: Medical (8) Lung nodule: Code(s): R91.1 - Solitary pulmonary nodule Category: Medical (9) PTSD (post-traumatic stress disorder): Code(s): F43.10 - Post-traumatic stress disorder, unspecified Category: Medical (10) ADHD: Code(s): F90.9 - Attention-deficit hyperactivity disorder, unspecified type Category: Medical (11) Hypertension: Code(s): I10 - Essential (primary) hypertension Category: Medical Plan Consent Patient was informed and verbally consented to the use of an ambient scribe for clinic note documentation during this visit. Plan 1. Asthma - The patient's Asthma Control Test score of 19 indicates his asthma is not well controlled. - Montelukast 10 mg at night will be added to his regimen to help control the cells responsible for allergic reactions and improve his asthma control score to over 21. - Refills for his current asthma medications have been sent. - He was counseled on the importance of continuing his Symbicort maintenance inhaler regardless of how he feels and using his albuterol inhaler for rescue. 2. Type 2 Diabetes Mellitus - Comprehensive lab work including a hemoglobin A1c will be ordered to assess his glycemic control over the last three months, as it has been over three months since his last check. - Referrals will be placed for a farm appraiser for an annual foot screening, an transport coordinator for an annual eye exam, a weather strip installer, and a bindery cutter operator. 3. Gout - Ibuprofen 800 mg will be removed from his medication list to avoid taking it concurrently with naproxen, which can cause gastrointestinal bleeding. - The patient will continue taking naproxen as needed for flare-ups. 4. Major Depressive Disorder And Ptsd - The patient is not currently taking medication for his depression and would like to see a psychiatrist to discuss medication management. - A referral to a psychiatrist will be placed. - The patient was also provided with the contact information for [facility] as a second option for psychiatric care. Discussion Notes I had a detailed discussion with the patient about establishing care today. We reviewed his asthma, noting that his recent Asthma Control Test score of 19 indicates it is not well-controlled. I explained that I will be adding montelukast 10 mg nightly to his regimen to help improve his asthma control. I reviewed the difference between his maintenance inhaler (Symbicort) and rescue inhaler (albuterol), emphasizing that Symbicort should be taken daily regardless of his symptoms. We discussed his recent gout flare-up and I advised him not to take ibuprofen and naproxen at the same time due to the risk of stomach bleeding; I have removed ibuprofen from his medication list. I explained the need for comprehensive blood work to get a baseline overview of his health, including a hemoglobin A1c, as it has been over three months since his last check. I also explained the importance of yearly screenings for a type 2 diabetic, including foot and eye exams, and placed the necessary referrals. Referrals were also made for a weather strip installer and bindery cutter operator, which he can decline if not interested. We addressed his history of severe depression and his desire to see a psychiatrist for medication management. I placed a referral and also provided him with the contact information for [facility] as an alternative. I informed him that we will follow up in two weeks to review all the results and adjust the plan as needed. Patient Instructions - You are being started on a new medication, Montelukast 10 mg, to help with your asthma. Take one pill at night. - Continue to take your Symbicort inhaler every day, two puffs in the morning and two puffs at night, even if you are feeling well. - Use your albuterol inhaler only when you feel short of breath. - Do not take Ibuprofen and Naproxen at the same time. You can continue taking Naproxen for your gout flare-ups as needed. The Ibuprofen has been removed from your medication list. - Please get the ordered blood work done at the lab in the clinic today. - You will be contacted for appointments with a foot doctor (farm appraiser), eye doctor (transport coordinator), weather strip installer, and a bindery cutter operator. Please let them know if you are not interested in the diabetes education. - A referral has been made for you to see a psychiatrist. You can also call [facility] at [phone] to schedule an appointment. - Please make a follow-up appointment to see me in two weeks to review your lab results. Medical Decision Making The patient is a 35-year-old male with multiple chronic conditions who presents to establish care and for follow-up of a recent ER visit for an asthma exacerbation and gout flare-up. His asthma is currently uncontrolled, with an Asthma Control Test score of 19. To improve control, I am adding montelukast 10 mg daily, as it can help manage the underlying allergic inflammation contributing to his symptoms. I have reinforced the importance of adherence to his maintenance Symbicort inhaler. Regarding his type 2 diabetes, it has been over three months since his last hemoglobin A1c, so I have ordered a new one along with a comprehensive panel of labs to establish a baseline and guide future management. Given his diagnosis, I have also placed referrals for annual podiatry and ophthalmology screenings to monitor for complications, as well as referrals for a weather strip installer and bindery cutter operator to support his self-management. For his recurrent gout, I've advised him to discontinue ibuprofen to avoid the risk of GI bleeding from concurrent NSAID use with naproxen. The patient's request for psychiatric evaluation for his severe depression and possible PTSD is appropriate, as he is currently unmedicated. I have placed a referral and pr ovided an alternative contact to facilitate timely access to care. The plan is to follow up in two weeks to review all diagnostic results and adjust the treatment plan accordingly. Total Time Statement 45 min Total time spent caring for the patient today includes pre-visit chart review, documentation, review of laboratory and diagnostic imaging results, medication reconciliation, medically necessary evaluation, counseling on diagnoses, care coordination, ordering appropriate tests and medications, review of tests performed by other providers, reporting test results to the patient, and communication with other healthcare providers. Orders: Orders Syphilis Screen Today Z13.9 - Encounter for screening, unspecified TSH reflex Free T4 Today Z13.9 - Encounter for screening, unspecified UA CC w/rflx Micro + Cult Today Z13.9 - Encounter for screening, unspecified Complete Blood Count Auto Diff Today Z13.9 - Encounter for screening, unspecified Hepatitis B Surface Antigen Today Z13.9 - Encounter for screening, unspecified Comprehensive Met. Panel Today Z13.9 - Encounter for screening, unspecified Hepatitis C Antibody Today Z13.9 - Encounter for screening, unspecified HIV Ab/Ag Today Z13.9 - Encounter for screening, unspecified Lipid Panel Today Z13.9 - Encounter for screening, unspecified Vitamin B12 and Folate Today Z13.9 - Encounter for screening, unspecified Hemoglobin A1c Today Z13.9 - Encounter for screening, unspecified Magnesium Today Z13.9 - Encounter for screening, unspecified Vitamin D 1,25 dihydroxy Today Z13.9 - Encounter for screening, unspecified Hepatitis B Surface Antibody Today Z13.9 - Encounter for screening, unspecified Uric Acid Today M10.9 - Gout, unspecified Referrals Nurse Navigator Referral E11.9 - Type 2 diabetes mellitus without complications Psychiatry Referral F32.9 - Major depressive disorder, single episode, unspecified Podiatry Referral E11.9 - Type 2 diabetes mellitus without complications Nutrition/Dietitian Referral E11.9 - Type 2 diabetes mellitus without complications Ophthalmology Referral Z13.5 - Encounter for screening for eye and ear disorders Medications: New budesonide-formoterol 160-4.5 mcg/actuation (Symbicort) 2 puffs inhalation BID 10.2 grams 0RF [nebulizer] As directed 1 ea 0RF J45.40 - Moderate persistent asthma, uncomplicated montelukast 10 mg PO BEDTIME 90 tabs 0RF Refilled albuterol sulfate 90 mcg/actuation (Ventolin HFA) 2 puffs inhalation Q6H PRN 8.5 grams 0RF shortness of breath or wheezing Discontinued ibuprofen Discontinued Reason: Doctor's Order 800 mg PO TID 21 tabs 0RF gout
[2025-06-17 14:59] VITALS: BP 143/68; PULSE 67; TEMP 36.3; O2SAT 95; BMI 42.2
--- OUTSIDE RECORDS SUMMARY | 2025-06-17 23:32 | XMS_ITS | Clinical Summary ---
Author Organization [facility] Prior to 12/08/[address] [place] [address] Care Team Providers Care Sole Stitcher Hand Name Role Phone Unavailable Primary Care Provider [...] Tobacco Cessation Counseling 04/29/2021 04/29/2020 Influenza Vaccine (#1) 2025 RSV Ped < 20 months Aged Out No longe r eligible based on patient's age to complete this topic
--- OUTSIDE RECORDS SUMMARY | 2025-06-17 23:32 | XMS_ITS | Data Portability ---
Author Organization [facility], [address] Address [address] [place] [address] Assessment No assessment recorded. Plan of Treatment Reminders Order Date Submit Date Provider Last Modified By Organization Details Last Modified Time Details Appointments None recorded. Lab None recorded. Referral emergency medicine referral - Severe SOB related to Asthma Exacerbatio n, DM II, need further evaluation and treatment. 2022 023 [email or web address] [facility] Room, [address] [place], [address], 12:48:00 Procedures None recorded. Surgeries None recorded. Imaging None recorded. Medication Orders None recorded. Patient TargetsNo targets recorded. Patient Instructions Encounter Date Encounter Id Patient Instructions Last Modified By Organization Details Last Modified Time 07/06/2023 [id number] shortness of breath: care instructions Not available 07/06/2023 12:42:35 How can you care for yourself at home? Follow your Asthma Action Plan so you can manage your symptoms at home. An Asthma Action Plan will help you prevent and control airway reactions and will tell you what to do during an asthma attack. If you do not have an Asthma Action Plan, work with your doctor to build one. Take your asthma medicine exactly as prescribed. Medicine plays an important role in controlling asthma. Talk to your doctor right away if you have any questions about what to take and how to take it. Use your quick-relief (rescue) medicine when you have symptoms of an asthma attack. Some people need to use quick-relief medicine before they exercise to prevent asthma symptoms. Salbutamol is a quick-relief medicine that is often used. In some cases, a certain type of controller inhaler is used as a quick-relief medicine. Ask your doctor what to use for quick relief. Take your controller (preventer) every day, not just when you have symptoms. Controller medicine usually includes an inhaled corticosteroid. The goal is to prevent problems before they occur. If your doctor prescribed corticosteroid pills to use during an attack, take them as directed. They may take hours to work, but they may shorten the attack and help you breathe better. Keep your quick-relief medicine with you at all times. Talk to your doctor before using other medicines. Some medicines, such as aspirin, can cause asthma attacks in some people. Check yourself for asthma symptoms to know which step to follow in your Asthma Action Plan. Watch for things like coughing, wheezing, being short of breath, and feeling tightness in your chest. Also notice if symptoms wake you up at night or if you get tired quickly when you exercise. If you have a peak flow meter, use it to check for changes in your breathing. This can help you predict when an asthma attack is going to occur. Take your medicine as recommended in your Asthma Action Plan to prevent asthma attacks or make them less severe. Talk to your doctor about making regular appointments. These visits will help you learn more about asthma and what you can do to control it. Your doctor will monitor your treatment to make sure the medicine is helping you. You should see your doctor about your asthma once or twice a year. Keep track of your asthma attacks and your treatment. After you have had an attack, write down what triggered it, what helped end it, and any concerns you have about your Asthma Action Plan. Take your diary when you see your doctor. You can then review your Asthma Action Plan and decide if it is working. Do not smoke or vape or allow others to smoke or vape around you. Avoid places where smoking and vaping are allowed. Smoking makes asthma worse. If you need help quitting, talk to your doctor about stop-smoking programs and medicines. These can increase your chances of quitting for good. Avoid smoke from forest fires. Learn what triggers an asthma attack for you, and avoid the triggers when you can. Common triggers include colds, smoke, air pollution, dust, pollen, mould (including snow mould), pets, cockroaches, stress and other strong emotions, and cold air. Get a flu shot every year. Talk to your doctor about getting a pneumococcal vaccine shot. If you have had one before, ask your doctor whether you need a second dose. If you must be around people with colds or the flu, wash your hands often. Not available 07/06/2023 12:43:06 Reason for Referral Emergency Medicine Referral for Dyspnea at rest Severe SOB related to Asthma Exacerbation, DM II, need further evaluation and treatment. Severe SOB related to Asthma Exacerbation, DM II, need further evaluation and treatment. Referring Physician: Jose Craven, Urgent Care, Encounter Date: 07/06/2023 Problems Name Problem SNOMED Code Status Onset Date Resolution Date Notes Provider Name and Address Organization Details Recorded Time Diabetes mellitus 41858161 Active 023 JEFFREY Swanson [facility] 12:42:04 Asthma 668441806 Active 023 JEFFREY Swanson [facility] 3 12:42:12 Problem Notes None recorded. Medical Equipment None Reported. Allergies No known drug allergies Medications Name Sig Start Date Stop Date Status Note LastModified by Organization Details LastModified Time FreeStyle Lancets 28 gauge USE DIRECTED 2 TIMES DAILY FOR TYPE 2 DIABETES MELLITUS active Not Available Not Available No t Available doxycycline monohydrate 100 mg capsule TAKE 1 CAPSULE BY MOUTH EVERY 12 HOURS FOR 7 DAYS active Not Available Not Available No t Available BD Ultra-Fine Mini Pen Needle 31 gauge x 3/16 USE DIRECTED active Not Available Not Available No t Available Symbicort 160 mcg-4.5 mcg/actuation HFA aerosol inhaler INHALE 2 PUFFS TWICE A DAY active Not Available Not Available No t Available FreeStyle Lite Strips USE DIRECTED 2 X DAILY FOR TYPE 2 DIABETES MELLITUS active Not Available Not Available No t Available Lantus Solostar U-100 Insulin 100 unit/mL (3 mL) subcutaneous pen [id number] UNITS UNDER THE SKIN DAILY active Not Available Not Available No t Available Vitals Date Recorded Oxygen saturation Heart rate Systolic And Diastolic Provider Name and Address Organization Details Last Updated DateTime 07/06/2023 90 % 114 /min 117/68 mm[Hg] [facility] 07/06/2023 12:43:17 Social History None recorded. Functional Status None recorded. Mental Status None recorded. Family History Nothing Reported. Medical History No medical history recorded. Past Encounters Encounter ID Performer Location Encounter Start Date Encounter Closed Date Diagnosis/Indication Diagnosis SNOMED-CT Code Diagnosis ICD10 Code Diagnosis IMO Codes Diagnosis Note [id number] [address] [place] [address] 12/03/2016 15:41:33 12/03/2016 17:08:17 [id number] [address] [facility] [place] [address] 04/17/2020 10:42:27 04/17/2020 12:21:06 [id number] Jose Craven, [employer] [address] [place] [address] 07/06/2023 12:36:37 07/06/2023 12:48:00 Dyspnea at rest [id number] R06.00 911 was called and patient was transferre d to hospital via EMS on ambulance accompanie d with 2 EMT's. Health Concerns Section Related Observation LastModified by Organization Detai ls LastModified Time None Recorded Concern Status LastModified by Organization Details LastModified Time None Recorded Advance Directives Directive None Recorded Payers Insurance Date Sequence Insurance Name Policy Number Policy George Covered Member ID George Member ID Guarantor Name 07/17/2023 1 [facility] (MEDICAID REPLACEMENT - O) [id number] Jose Serna [id number] Jose Serna 07/06/2023 1 [place] [facility] Jose Serna [id number] Jose Serna Notes Date Note Type Note Provider Name and Address Organization Details Recorded Time 07/06/2023 text/html Shortness of BreathReported by Patientpulmonary symptomsFor timing, patient reportsnew onsetbut reports1 days. For additional symptoms, patient reportsanxiety,lighthe adedness,cough, andpain with breathingbut reportsno nauseaandno fatigue. For source of patient information, patient reportssource of patient information patient(moderate to severe sob, unable to talk or deep breath dues to sob . known asthmatic patient also diabetic on insulin. 911 was immediately called . patient stating he is unable to walk and was place in a wheelchair.). Jose Craven NP [address] [place], [address], [place] - [facility] 07/06/2023 12:48:29
--- OUTSIDE RECORDS SUMMARY | 2025-06-17 23:32 | XMS_ITS | Clinical Summary ---
Author Organization [facility] Address [address] [place] [address] Care Team Providers Care Corporate Tax Preparer Name Role Phone Unavailable Primary Care Provider [...] on file Sexual Orientation Not on file Plan of Treatment Health Maintenance Due Date Last Done Comments DTaP,Tdap,and Td Vaccines (1 - Tdap) 2009 Hepatitis B Vaccines (1 of 3 - 19+ 3-dose series) 2009 HPV Vaccines (1 - 3-dose SCD M series) 2017 Depression Screening 07/11/2024 COVID-19 Vaccine (1 - 2024-2 6 season) 2025 Influenza Vaccine (#1) 2025 RSV Immunization Adult Patie nts (1 - 1-dose 75+ series) 2065 HIB Vaccines Aged Out No longer eligi [...] 5 Years) and At-Risk Patients (6 to 49 Years) Aged Out No longer eligible b ased on patient's age to complete this topic RSV Immunization Patients Un kimberlee 20 months Aged Out No longer eligible b ased on patient's age to complete this topic Varicella Vaccines Aged Out No longer eligible based on patient's age to complete this topic
== END 2025-06-17 15:38 | disposition home or self-care (01) ==
LOC: HO.HMCFMS 14:28
PROVIDERS: PCP Student in an Organized Health Care Education/Training Program; Visit Provider Student in an Organized Health Care Education/Training Program
DX: J45.909 Unspecified asthma, uncomplicated (principal); E11.9 Type 2 diabetes mellitus without complications; E66.01 Morbid (severe) obesity due to excess calories; M10.9 Gout, unspecified; F32.9 Major depressive disorder, single episode, unspecified; E78.5 Hyperlipidemia, unspecified; G47.33 Obstructive sleep apnea (adult) (pediatric); R91.1 Solitary pulmonary nodule; F43.10 Post-traumatic stress disorder, unspecified; F90.9 Attention-deficit hyperactivity disorder, unspecified type; I10 Essential (primary) hypertension

== ENCOUNTER 2025-06-17 14:27 | Outpatient (REF) | payer OTHER, SELFPAY ==
[2025-06-17 18:26] LABS: MANUAL DIFF FLAG NO
[2025-06-17 18:38] LABS: Hematocrit 44.4 % (42.0-52.0); Hemoglobin 14.9 g/dl (14.0-18.0); Imm Gran Abs Auto 0.01 X10*3/uL (0.00-0.03); Imm Gran Pct Auto 0.1 % (0.0-0.4); Lymphocytes Absolute Auto 3.2 X10*3/uL (1.2-4.9); Mean Corpuscular HGB Conc 33.6 g/dl (31.0-36.0); Mean Corpuscular Hemoglobin 26.9 pg (27.0-33.0); Mean Corpuscular Volume 80.1 fL (80.0-98.0); NRBC Abs Auto 0.000 X10*3/uL (0.0-0.012); NRBC Pct Auto 0.0 /100WBC (0.0-0.2); Platelet Count 331 X10*3/uL (160-400); Red Blood Count 5.54 X10*6/uL (4.60-5.80); White Blood Count 9.3 X10*3/uL (4.8-10.8)
[2025-06-17 18:57] LABS: Alanine Aminotransferase 14 U/L (0-40); Albumin Level 4.6 g/dL (3.5-5.0); Alkaline Phosphatase 68 U/L (39-117); Anion Gap 11 (12-20); Aspartate Amino Transferase 23 U/L (5-37); Blood Urea Nitrogen 15 mg/dL (9-16); Calcium 9.3 mg/dL (8.4-10.2); Carbon Dioxide 26 mmol/L (22-29); Chloride 107 mmol/L (96-108); Cholesterol 170 mg/dL (<200); Estimated Glomerular Filt Rate > 60; HDL Cholesterol 39 mg/dL (>40); Magnesium 1.8 mg/dL (1.6-2.6); Potassium 4.0 mmol/L (3.3-5.1); Sodium 140 mmol/L (135-145); Total Protein 7.7 g/dL (6.5-8.0); Triglycerides 97 mg/dL (<150); Uric Acid 10.3 mg/dL (3.4-7.0)
[2025-06-17 18:59] LABS: Appearance Urine Clear; Glucose Urine UA Negative (Negative); PH 5.5 (5.0-9.0); Specific Gravity - Urine 1.020 (1.005-1.025)
[2025-06-17 19:35] LABS: Folate 5.0 ng/mL (> or = 4.0); Vitamin B12 502 pg/mL (200-900)
[2025-06-18 04:02] LABS: Syphilis Screen Nonreactive (Nonreactive)
[2025-06-18 04:49] LABS: HBS Num1 130.79 mIU/mL (0-7.99); HBsAGNum1 0.34 S/CO (0.00-0.99); HIV Num 1 0.06 S/CO (0.00-0.99); Hepatitis B Surface Antigen Negative (Negative); ~HepC Num1 0.13 S/CO (0.00-0.79); ~Hepatitis B Surface Antibody REACTIVE (Nonreactive); ~Hepatitis C Antibody Nonreactive (Nonreactive)
[2025-06-21 14:53] LABS: VITAMIN D (1,25 OH) D3 37 pg/mL; Vit D (1,25-Dihydroxy) Total 37 pg/mL (18-72); Vitamin D (1,25 OH) D2 <8 pg/mL
== END 2025-06-17 14:28 | disposition home or self-care (01) ==
LOC: HO.HKASLDS 14:27
PROVIDERS: PCP Student in an Organized Health Care Education/Training Program; Visit Provider Student in an Organized Health Care Education/Training Program
DX: Z13.9 Encounter for screening, unspecified (principal); M10.9 Gout, unspecified; J45.909 Unspecified asthma, uncomplicated; E66.01 Morbid (severe) obesity due to excess calories; F32.9 Major depressive disorder, single episode, unspecified; E78.5 Hyperlipidemia, unspecified; G47.33 Obstructive sleep apnea (adult) (pediatric); R91.1 Solitary pulmonary nodule; F43.10 Post-traumatic stress disorder, unspecified; F90.9 Attention-deficit hyperactivity disorder, unspecified type; I10 Essential (primary) hypertension; Z68.41 Body mass index [BMI] 40.0-44.9, adult
CPT/HCPCS: 36415; 80053; 80061; 81003; 82607; 82652; 82746; 83036; 83735; 84443; 84550; 85025; 86706; 86780; 86803; 87340; 87389; 96127; 96160; 99212